=== PATIENT | female | born 1980 | race Caucasian/White ===

== ENCOUNTER 2022-02-24 11:35 | Day surgery (SDC) | payer BC, SELFPAY ==
--- NOTE | 2022-02-18 11:06 | PCM.HP.BLA ---
History and Physical Date of Admission: 02/24/22 Pre-Op History and Physical ? HPI: The patient is a 41 year old female presenting for pre-operative visit. She is scheduled for hysteroscopy, Lesley ablation , for AUB on 02/24/22. Uses VASECTOMY for control. Procedure discussed along with risks, benefits and complications. Other alternatives discussed for management. Consent form signed? Yes. ? ? PAST MEDICAL HISTORY PAST MEDICAL HISTORY Diagnosis Date ? NEGATIVE MEDICAL HISTORY ? ? ? PAST SURGICAL HISTORY PAST SURGICAL HISTORY Procedure Laterality Date ? BUNIONECTOMY, [place]-TYPE Bilateral ? ? SECTION SINGLE ? 02/04/2009 ? ? ? CURRENT MEDICATIONS Current Outpatient Medications Medication Sig Dispense Refill ? COLLAGEN MISC ? drospirenone, contraceptive, (SLYND) 4 mg (28) tabet Take 1 tablet by mouth once daily. 28 tablet 0 ? multivit with calcium,iron,min (WOMEN'S MULTIPLE VITAMINS ORAL) Take by mouth. ? ? ? cholecalciferol (VITAMIN D-3) 400 unit tab Take 400 Units by mouth once daily. ? ? ? Fe gluconate/vit C/folic acid (IRON-C ORAL) Take by mouth. ? ? ? sertraline (ZOLOFT) 50 mg tablet Take 50 mg by mouth once daily. ? ? ? No current facility-administered medications for this visit. ? ? ALLERGIES: Patient has no known allergies. ? PERSONAL HISTORY: SOCIAL HISTORY Social History ? Tobacco Use ? Smoking status: Never Smoker ? Smokeless tobacco: Never Used Vaping Use ? Vaping Use: Never used Substance Use Topics ? Alcohol use: Yes ? ? Comment: 1-2 drinks per weekend ? Drug use: Never ? FAMILY HISTORY: FAMILY HISTORY FAMILY HISTORY Problem Relation Age of Onset ? Diabetes Mother ? ? Skin Cancer Mother ? ? Hypertension Father ? ? Melanoma Father ? ? Alzheimer's Disease Maternal Grandmother ? ? Diabetes Paternal Grandmother ? ? Alzheimer's Disease Paternal Grandmother ? ? Diabetes Paternal Grandfather ? ? Alzheimer's Disease Paternal Grandfather ? ? other (bladder cancer) Paternal Grandfather ? ? ? REVIEW OF SYMPTOMS: negative except as noted above PHYSICAL EXAMINATION: ? VITALS: Blood pressure 126/80, weight 209 lb (94.8 kg), last menstrual period 01/08/2022. ? GENERAL: The patient is well nourished, well hydrated in no acute distress. , The patient is oriented to time, place, and person. NECK: full range of motion GENITALIA: Normal external genitalia, Urethral meatus normal, Bladder nontender, normal vagina and normal vaginal tone, normal cervix and perineum WNL ? IMPRESSION: 41yo with AUB- failed medical mgmt with progesterone therapy. ? PLAN: Hysteroscopy, Endometrial ablation with Lesley ? Pt has been counseled on risks/benefits and alternatives of surgery including but not limited to anesthesia, bleeding, infection, uterine perforation with subsequent injury to pelvic structures including bowel, bladder, ureters and vessels. Pt wishes to proceed with surgery at this time. ? Consent signed Pre and post op instructions reviewed. ? I have reviewed and updated past medical and surgical history, medications and allergies Shani Flores MD
[2022-02-24] VITALS (8 sets, daily range): BP systolic 109–137; BP diastolic 58–78; PULSE 63–88; RESP 16; TEMP 36.2–37; O2SAT 97–100; BMI 36.0
[2022-02-24 12:10] LABS: Internal QC Validated? YES +Cl - CLEAR BKGD; Pregnancy, Urine Negative Negative
[2022-02-24] MEDS: Lactated Ringers 1,000 ML 15 ML IV (12:12)
--- NOTE | 2022-02-24 14:12 | DCINST_ITS ---
Discharge Instructions Procedure D&C Diet Discharge Diet: No restrictions Activity May resume sexual activity in: 1 week Dressing / Incision Call your doctor if you observe: Fever of 101 or Higher, Inability to urinate, Using more than 1 pad per hour and Uncontrolled pain Follow Up Care Please Follow Up With: Shani Evans MD When: 1-2 weeks post OP if you need an appointment please call [phone] Test Results: Test results from this visit will be discussed in further detail at your follow- up appointment, if applicable. Discharge Plan Admission Attending Provider: Shani Evans Primary Care Provider: Deandra June Discharge Orders/Prescriptions Prescriptions: No Action multivitamin Tablet 1 tab PO DAILY sertraline 50 mg Tablet 50 mg PO DAILY Slynd 4 mg (28) Tablet 1 tab PO DAILY Referrals / Follow Up: Deandra June DO [Primary Care Provider] - Disposition Disposition (needs filled in before D/C Order can be placed): Home, Self Care
--- NOTE | 2022-02-24 14:12 | PCM.OPRPT ---
Report of Operation Date of Procedure: 02/24/22 Pre-Operative Diagnosis: AUB Post-Operative Diagnosis: same Surgery/Procedure Performed:: Hysteroscopy, Lesley endometrial ablation Description of Surgical Findings:: normal endometrium- both tubal ostia visualized. Surgeon: Shani Evans Type of Anesthesia: MAC Specimen's removed: none Drains: none Estimated Blood Loss (mL): <5cc Fluids Replaced: 900 Description of Procedure: After informed consent was obtained patient taken to the operating room she is placed in supine position she is given anesthesia simply self insert she is prepped draped normal sterile fashion. Bladder was drained prior to the start of the procedure. At this time the weighted speculum was placed the posterior fornix of the vagina then a single-tooth tenaculum was used to grasp the anterior lip of the cervix. At this time the uterus was sounded to approximately 10.5 cm the endocervical canal sounded to 4. cm. Next cervix was dilated in incremental fashion. Once adequate dilatation was achieved the hysteroscope was inserted using normal saline as distention medium. On hysteroscopy there were no gross abnormalities. Both tubal ostia were visualized. At this time the Lesley device was opened. The Lesley was set at 6.5 cm. The device was activated. Prior to activation the field test was performed and cavity was intact. The device was then fired and activated for 120 seconds. Once the 120 seconds was completed the device was removed intact and the tenaculum was removed. Good hemostasis was appreciated. Weighted speculum was removed. Vaginal sweep was performed is negative. There were no complications. Anticipated normal postoperative course for this patient. Instrument and lap count were correct ?2. Grafts/Implants Used: none Procedure Start Time: 14:26 Procedure Stop Time: 14:36 Complications none Admit VTE Documentation VTE Present on Admission: Yes VTE Mechan Device Prophylaxis: SCD's VTE Pharm Prophylaxis ordered?: No Reason prophylaxis not ordered:: Procedure Not Indicated
[2022-02-24] MEDS: Acetaminophen 500 MG Tablet 1000 MG PO (15:25)
== END 2022-02-24 16:37 | disposition home or self-care (01) ==
LOC: SDC 11:38 → AC 11:41
PROVIDERS: PCP Family Medicine; Referring Provider Obstetrics & Gynecology; Visit Provider Obstetrics & Gynecology
PROC: 0U5B8ZZ Destruction of Endometrium, Via Natural or Artificial Opening Endoscopic (ICD-10-PCS; CPT 58558; principal; 2022-02-24 13:00)
DX: N93.9 Abnormal uterine and vaginal bleeding, unspecified (principal); F41.9 Anxiety disorder, unspecified
CPT/HCPCS: 58563; 00952; 81025; J7120; J2405